=== PATIENT | female | born 1990 | race Caucasian/White ===

== ENCOUNTER 2016-10-30 08:55 | Emergency (ER) | payer OTHER ==
[2016-10-30 09:11] VITALS: BP 113/82
[2016-10-30] MEDS ORDERED: Ketorolac INJ* 30 MG/ML 1 ML VIAL IM ONE (09:31)
--- NOTE | 2016-10-30 09:37 | UC ---
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 Since yesterday she had had increased pain, decreased ROM and intermittent pains shooting down both legs (sometimes to feet) Leg symptoms last seconds and recur frequently no bowel or bladder dysfunction - History of Current Complaint Chief Complaint: UCBackPain Stated Complaint: LOWER BACK PAIN WC Time Seen by Provider: 10/30/16 09:12 Hx Obtained From: Patient Hx Last Menstrual Period: ~10/09/16 Onset/Duration: Sudden Onset, Lasting Weeks Timing: Constant Severity Initially: Mild Severity Currently: Severe Pain Intensity: 8 Pain Scale Used: 0-10 Numeric Back Pain: Is Diffuse, Radiates To - both legs Character: Sharp, Aching, Throbbing, Spasmodic, Stiffness Aggravating: Movement, Lifting, Bending, Walking Alleviating: Nothing Associated Signs And Symptoms: Positive: Pain with Weight Bearing Related History: Occupational Injury - Allergies/Home Medications Allergies/Adverse Reactions: Allergies Allergy/AdvReac Type Severity Reaction Status Date / Time No Known Allergies Allergy Verified 10/30/16 09:07 Home Medications: Home Medications Ibuprofen TAB* [Advil TAB*] 800 mg PO Q6H PRN 10/30/16 [History Confirmed ] PMH/Surg Hx/FS Hx/Imm Hx Previously Healthy: Yes - Surgical History Surgical History: Yes Surgery Procedure, Year, and Place: Left Knee Arthroscopy, 2006, [facility] - Family History Known Family History: Positive: Hypertension, Diabetes - Social History Alcohol Use: Rare Substance Use Type: None Smoking Status (MU): Current Some Day Smoker Review of Systems Constitutional: Negative Skin: Negative Eyes: Negative ENT: Negative Respiratory: Negative Cardiovascular: Negative Gastrointestinal: Negative Genitourinary: Negative Motor: Negative Neurovascular: Negative Musculoskeletal: Arthralgia, Myalgia Neurological: Negative Psychological: Negative All Other Systems Reviewed And Are Negative: Yes Physical Exam Triage Information Reviewed: Yes Appearance: Well-Appearing, No Pain Distress, Well-Nourished Vital Signs: Initial Vital Signs Temp 97.7 F 10/30/16 09:03 Pulse 96 10/30/16 09:03 Resp 16 10/30/16 09:03 BP 113/82 10/30/16 09:03 Pulse Ox 100 10/30/16 09:03 Vital Signs Reviewed: Yes Eyes: Positive: Conjunctiva Clear ENT: Positive: Hearing grossly normal. Negative: Nasal congestion, Nasal drainage, Trismus, Muffled/hoarse voice Neck: Positive: Supple Respiratory: Positive: Lungs clear, Normal breath sounds, No respiratory distress Cardiovascular: Positive: RRR, No Murmur, Pulses Normal Musculoskeletal: Positive: ROM Intact, No Edema Neurological: Positive: Alert Psychological Exam: Normal Skin Exam: Normal Back Pain Course/Dx - Differential Dx/Diagnosis Provider Diagnoses: acute lumbar myofascial strain Discharge - Discharge Plan Condition: Stable Disposition: HOME Prescriptions: Cyclobenzaprine TAB* [Flexeril TAB*] 5 mg PO TID PRN #21 tab PRN Reason: Spasms HYDROcodone/ACETAMIN 5-325 MG* [[place]ster 5-325 TAB*] 1 tab PO Q4H PRN #14 tab MDD 2 PRN Reason: Pain - Severe Naproxen [Naproxen 500 MG TABS] 500 mg PO BID PRN #30 tab PRN Reason: Pain Patient Education Materials: Low Back Strain (ED) Forms: *Work Release Additional Instructions: please return this THURS for recheck Images Front/Back of Body, Lg ([place]): 1 - tender, decreased ROM, sensory intact, DTRs equal, (-) SLR, slow wide based gait
== END 2016-10-30 09:52 | disposition home or self-care (01) ==
LOC: UCCORT 08:55
DX: S39.012A Strain of muscle, fascia and tendon of lower back, initial encounter (principal); X50.0XXA Overexertion from strenuous movement or load, initial encounter; Y93.9 Activity, unspecified; Y99.9 Unspecified external cause status; F17.200 Nicotine dependence, unspecified, uncomplicated
CPT/HCPCS: 96372; 99202; G0463; J1885